=== PATIENT | male | born 1970 | race Caucasian/White ===

== ENCOUNTER 2017-10-11 08:45 | Inpatient (IN) ==
[2017-10-18] MEDS ORDERED: Metoprolol Tartrate 25 MG Tablet PO SCH (06:45)
[2017-10-18] MEDS ORDERED: Chlorhexidine Gluconate 2% 1 Pack (2 Cloths) TOPICAL SCH ×2 (06:45→07:00)
[2017-10-18] MEDS ORDERED: Sodium Chlor 0.9% Inj 500 ML IV.SIG SCH (07:00)
[2017-10-18] MEDS ORDERED: Vancomycin Inj 1,000 MG in Sodium Chlor 0.9% Inj 250 ML IV.SIG SCH (07:00)
[2017-10-18] MEDS ORDERED: Artificial Tears Opth Oint 3.5 GM Tube ONE (07:19)
[2017-10-18] MEDS: Sod Chloride 0.9% Inj 1,000 ML IV.SIG SCH (07:31)
[2017-10-18] MEDS ORDERED: Bupivacaine/Epinephrine 0.5% Inj 50 ML Vial ONE (08:41)
[2017-10-18] MEDS ORDERED: Gelatin Size 100 Topical Foam ONE (08:41)
[2017-10-18] MEDS ORDERED: Thrombin Topical Soln 5,000 UNIT Vial TOPICAL ONE (08:41)
[2017-10-18] MEDS ORDERED: Phenylephrine/NS 1000 MCG/10ML Syringe IV.PUSH ONE (12:00)
[2017-10-18] MEDS ORDERED: Glycopyrrolate Inj 1 MG/5 ML Syringe IV.PUSH ONE (12:00)
[2017-10-18] MEDS ORDERED: Lidocaine PF 1% Inj 5 ML Syringe INFILTRATN ONE (12:00)
[2017-10-18] MEDS ORDERED: Neostigmine Inj 5 MG/5 ML Syringe IV.PUSH ONE (12:00)
[2017-10-18] MEDS ORDERED: Menthol 5.8 MG Lozenge BUCCAL PRN (12:30)
[2017-10-18] MEDS ORDERED: Aluminum/Magnesium/Simethacone Susp 30 ML UDC PO PRN (12:30)
[2017-10-18] MEDS ORDERED: Acetaminophen 325 MG Tablet PO PRN (12:30)
[2017-10-18] MEDS ORDERED: Magnesium Sulfate Inj 2 GM in Sodium Chlor 0.9% Inj 96 ML IV.SIG PRN (12:30)
[2017-10-18] MEDS ORDERED: Potassium Chlor 20 mEq Premix 20 MEQ/100 ML PIGGYBACK IV.SIG PRN (12:30)
[2017-10-18] MEDS ORDERED: Morphine Inj 4 MG/ML Vial IV.PUSH PRN (12:30)
[2017-10-18] MEDS ORDERED: Bisacodyl 10 MG Supp RECTAL PRN (12:30)
[2017-10-18] MEDS ORDERED: Calcium Gluconate Inj 1 GM in Sodium Chlor 0.9% Inj 100 ML IV.SIG PRN (12:30)
[2017-10-18] MEDS ORDERED: Zolpidem Tartrate 5 MG Tablet PO PRN (12:30)
--- NOTE | 2017-10-18 12:46 | P.OP ---
- Preoperative Diagnosis (1) Degeneration of lumbar intervertebral disc (2) Spinal stenosis of lumbar region with radiculopathy (3) Lumbar facet arthropathy (4) Chronic low back pain with bilateral sciatica (5) History of lumbar fusion - Postoperative Diagnosis (1) Chronic low back pain with bilateral sciatica (2) Degeneration of lumbar intervertebral disc (3) History of lumbar fusion (4) Lumbar facet arthropathy (5) Spinal stenosis of lumbar region with radiculopathy Date of procedure: 10/18/17 Procedure: Lumbar L4-5 transforaminal interbody fusion; L4-5 decompressive laminectomy with facetectomy and foraminotomy; L4-5 pedicle screw fixation; L4-5 interbody cage placement; removal of L5-S1 rods and caps with replacement; microsurgical technique Anesthesia: MERYL Surgeon: Nghia Maher MD Block Press Operator: Radha Kim Estimated blood loss (mL): 100 Operation and Findings: Following initiation of general endotracheal anesthesia, the patient had a Smith catheter placed along with sequential compression devices. A gram of vancomycin was administered intravenously and he was turned in a prone position on a Maxwell frame, on a Evin table, and all pressure points adequately padded. The lumbosacral region was then prepped with Chloraprep and sterilely draped with Ioban along the usual sterile draping. A right paraspinal skin incision was then made extending from the L4-L5 level also incorporating the previous L5-S1 incision site after infiltrating the skin with 0.5% Marcaine with epinephrine solution extending down through the fascia. The muscle fibers were split using avascular fatty plane and detached from the underlying facets, transverse process and lateral portion of lamina on the right side and a self- retaining retractor used for exposure. Intraoperative fluoroscopy was also used for level of confirmation along with microscope magnification for further dissection. There was significant facet and ligamentum flavum hypertrophy noted at the L4-5 levels. Right L4-5 facet was resected with a drill bit along with the lamina and there was severe foraminal and lateral recess stenosis from hypertrophied ligamentum flavum and facet which were decompressed. There was significant disc height collapse along with disc protrusion also leading to the foraminal stenosis. Epidural hemostasis was achieved with bipolar cautery and Gelfoam with thrombin. Subsequently entered into the disc space at the L4- 5 level with a #15 blade and hiram were used for discectomy. I then placed PEEK cage packed with local autograft bone and more local autograft bone was packed adjacent to the cage in interspace for added interbody fusion. With placement of the cage, I was able to distract the interspace and opened up the foramen further bilaterally. Subsequently in order to facilitate the fusion and provide stabilization, pedicle screw fixation was undertaken using [place] spine screws on entry point at the right L4 level at the junction of the transverse process and facet using lateral and AP fluoroscopy guidance. The right L5 and S1 pedicle screws were also exposed with the lysis of adjacent scar tissue and the capsule and the jamie was removed. The L4, L5 and S1 screws were then connected with a jamie and locked in place with caps. The construct appeared very secure at this point. The area was then copiously irrigated with Vancomycin solution and powder. The retractors were removed and the bipolar cautery used for hemostasis. The muscle fascia was then approximated using 2-0 Vicryl interrupted stitches and then 3-0 Vicryl subcuticular stitches also placed in interrupted fashion. The final skin closure was completed with Mastisol and Steri-Strips. A sterile dressing was then applied. The patient then turned in supine position, extubated and taken to recovery room. There were no intraoperative complications. All sponge and needle counts were correct at the end of procedure. Estimated blood loss about 100 ml.
[2017-10-18] MEDS ORDERED: fentaNYL Citrate Inj 100 MCG/2 ML Ampul ONE (12:54)
[2017-10-18] MEDS ORDERED: *morphine SULFATE 4 MG/ML PERIprocedure ONLY ONE ×2 (12:57→14:03)
[2017-10-18] MEDS: Gabapentin 300 MG Capsule PO SCH ×2 (13:00→18:00)
--- NOTE | 2017-10-18 13:28 | XR ---
EXAM DATE: 10/18/2017 1:02 PM EDT AGE/SEX: 47 years / Male INDICATIONS: Herniated disk, hardware placement, fusion. CLINICAL DATA: This is the patient's initial encounter. Patient reports that signs and symptoms have been present for 1 day and indicates a pain score of Nonresponsive. MEDICAL/SURGICAL HISTORY: . . L5-S1 fusion. COMPARISON: [facility] [place], SP[facility] LUMBAR [facility] (AP & LAT), 12/21/2012. . FINDINGS: AP and lateral spot fluoroscopic images obtained in the operating room during a procedure demonstrate s right pedicular screws with vertical stabilization hardware at L4-S1. Material is also present in t he intervening disc spaces. CONCLUSION: Images obtained during right posterior lumbosacral fusion, as above. Electronically signed by: Juventino Malhotra MD 10/18/2017 1:27 PM EDT
[2017-10-18 13:31] LABS: Baso % (Auto) 0.2 % (0.0-2.0); Eos % (Auto) 0.1 % (0.0-4.0); Hematocrit 39.8 % (39.0-51.0); Hemoglobin 13.3 gm/dL (13.0-17.0); Lymph # (Auto) 0.4 th/mm3 (1.0-4.8); Lymph % (Auto) 5.5 % (9.0-44.0); Mean Corpuscular HGB Conc 33.3 % (32.0-36.0); Mean Corpuscular Hemoglobin 29.4 pg (27.0-34.0); Mean Corpuscular Volume 88.3 fL (80.0-100.0); Mean Platelet Volume 7.1 fL (7.0-11.0); Mono % (Auto) 0.5 % (0.0-8.0); Neut # (Auto) 7.2 th/mm3 (1.8-7.7); Neut % (Auto) 93.7 % (16.0-70.0); Platelet Count 198 th/mm3 (150-450); Red Blood Count 4.51 mil/mm3 (4.50-5.90); Red Cell Distribution Width 14.1 % (11.6-17.2); White Blood Count 7.7 th/mm3 (4.0-11.0)
[2017-10-18 13:53] LABS: Calcium 8.2 mg/dL (8.5-10.1); Carbon Dioxide 29.2 meq/L (21.0-32.0); Potassium 4.3 meq/L (3.5-5.1)
[2017-10-18] MEDS: Senna/Docusate Sodium 8.6/50 MG Tablet PO SCH (21:03)
[2017-10-19] MEDS: Sod Chloride 0.9% Inj 1,000 ML IV.SIG SCH (08:18)
[2017-10-19] MEDS: Senna/Docusate Sodium 8.6/50 MG Tablet PO SCH ×2 (09:28→21:43)
[2017-10-19] MEDS: Gabapentin 300 MG Capsule PO SCH ×3 (09:28→18:41)
[2017-10-20] MEDS: Sod Chloride 0.9% Inj 1,000 ML IV.SIG SCH (08:29)
[2017-10-20] MEDS: Gabapentin 300 MG Capsule PO SCH ×3 (09:24→18:25)
--- NOTE | 2017-10-20 10:19 | P.PNNS ---
Subjective Interval history: Pt awake and alert. Complains of incisional pain. No radiculopathy in LEs. Paresthesias posterior right knee. Pt states he is ambulating. He has had BMs. <Parish Zuniga - Last Filed: 10/20/17 10:13> Physical Exam Vital signs: Vital Signs 10/19/17 10:27 10/19/17 12:00 10/19/17 16:00 Temperature 97.6 F 97.8 F Pulse Rate 96 H 100 H Respiratory Rate 14 18 18 Blood Pressure 122/70 120/60 Pulse Oximetry 93 L 94 L 10/19/17 20:00 10/20/17 00:00 10/20/17 04:22 Temperature 98.1 F 97.9 F Pulse Rate 101 H 94 H Respiratory Rate 16 17 16 Blood Pressure 144/80 H 123/67 Pulse Oximetry 93 L 94 L 10/20/17 08:00 Temperature 98.2 F Pulse Rate 88 Respiratory Rate 17 Blood Pressure 109/56 L Pulse Oximetry 94 L Intake & Output 10/19/17 10/20/17 10/20/17 18:59 06:59 18:59 Intake Total 1180 / 1180 480 / 480 Balance 1180 / 1180 480 / 480 Intake: IV 100 / 100 Ancef Inj 1,000 MG In NS Inj 100 / 100 100 ML @ 200 mls/hr IV.SIG Q8H NELLIE Rx#:[id number] Oral 1080 / 1080 480 / 480 Other: # Voids 3 Date of Last Bowel Movement 10/19/17 # Bowel Movements 1 - Constitutional no acute distress, cooperative - Routine HEENT Exam Head: Present: normocephalic, atraumatic Eye: Present: PERRL. Absent: conjunctival icterus ENT: Present: oropharynx clear - Routine Neck Exam Present: trachea midline - Routine Respiratory Exam Present: CTA bilaterally. Absent: respiratory distress, rhonchi, wheezes - Routine Cardiovascular Exam Present: RRR, S1, S2. Absent: murmur - Routine Abdominal Exam Present: soft, normoactive bowel sounds. Absent: distended - Routine Extremities Exam Absent: cyanosis - Routine Skin Exam Present: intact. Absent: cyanosis, erythema Comments: Lumbar incision is clean and dry without signs of infection. New bandage place. - Routine Neurological Exam Present: alert, oriented X3. Absent: sensory deficit, motor deficit - Routine Psychiatric Exam Present: normal affect, cooperative. Absent: agitated - Urinary Catheter Management Indwelling Urethral Catheter Cath placed during this visit: yes, but has since been removed by the nurse Reason for continuing: Decision to DC catheter Insertion date: 10/18/17 Insertion time: 08:30 Removal date: 10/19/17 Removal time: 08:00 <Parish Zuniga - Last Filed: 10/20/17 10:13> Vital signs: Vital Signs 10/19/17 20:00 10/20/17 00:00 10/20/17 04:22 Temperature 98.1 F 97.9 F Pulse Rate 101 H 94 H Respiratory Rate 16 17 16 Blood Pressure 144/80 H 123/67 Pulse Oximetry 93 L 94 L 10/20/17 08:00 10/20/17 12:00 Temperature 98.2 F 98.5 F Pulse Rate 88 102 H Respiratory Rate 17 17 Blood Pressure 109/56 L 152/72 H Pulse Oximetry 94 L 94 L Intake & Output 10/19/17 10/20/17 10/20/17 18:59 06:59 18:59 Intake Total 1180 / 1180 480 / 480 Balance 1180 / 1180 480 / 480 Intake: IV 100 / 100 Ancef Inj 1,000 MG In NS Inj 100 / 100 100 ML @ 200 mls/hr IV.SIG Q8H NELLIE Rx#:[id number] Oral 1080 / 1080 480 / 480 Other: # Voids 3 Date of Last Bowel Movement 10/19/17 10/20/17 # Bowel Movements 1 - Urinary Catheter Management Indwelling Urethral Catheter Cath placed during this visit: no <Nghia Maher - Last Filed: 10/20/17 16:01> Assessment and Plan - Assessment (1) Degeneration of lumbar intervertebral disc Code(s): M51.36 - Other intervertebral disc degeneration, lumbar region Status : Acute (2) Spinal stenosis of lumbar region with radiculopathy Code(s): M48.061 - Spinal stenosis, lumbar region without neurogenic claudication; M54.16 - Radiculopathy, lumbar region Status: Acute (3) Lumbar facet arthropathy Code(s): M46.96 - Unspecified inflammatory spondylopathy, lumbar region Status : Acute (4) Chronic low back pain with bilateral sciatica Code(s): M54.41 - Lumbago with sciatica, right side; M54.42 - Lumbago with sciatica, left side; G89.29 - Other chronic pain Status: Acute (5) History of lumbar fusion Code(s): Z98.1 - Arthrodesis status Status: Acute - Plan A: 47 y/o M s/p Lumbar L4-5 transforaminal interbody fusion; L4-5 decompressive laminectomy with facetectomy and foraminotomy; L4-5 pedicle screw fixation; L4-5 interbody cage placement; removal of L5-S1 rods and caps with replacement on 10/18/17. P: Continue with pain control. Continue with rehab efforts. Anticipate discharge 10/21/17. <Parish Zuniga - Last Filed: 10/20/17 10:13> - Attending Attestation The exam, history, and the medical decision-making described in the above note were completed with the assistance of the mid-level provider. I reviewed and agree with the findings presented. I attest that I had a [id number] encounter with the patient on the same day, and personally performed and documented my assessment and findings in the medical record. <Nghia Maher - Last Filed: 10/20/17 16:01>
[2017-10-20] MEDS: Senna/Docusate Sodium 8.6/50 MG Tablet PO SCH ×2 (13:25→23:42)
[2017-10-21] MEDS: Sod Chloride 0.9% Inj 1,000 ML IV.SIG SCH (08:46)
[2017-10-21] MEDS: Gabapentin 300 MG Capsule PO SCH ×2 (08:47→13:20)
[2017-10-21] MEDS: Senna/Docusate Sodium 8.6/50 MG Tablet PO SCH (08:47)
--- NOTE | 2017-10-21 10:06 | P.PNNS ---
Subjective Interval history: Pt awake and alert. Complains of incisional discomfort controlled with pain medication. No radiculopathy in LEs. Paresthesias posterior knee resolved. Physical Exam Vital signs: Vital Signs 10/20/17 12:00 10/20/17 16:00 10/20/17 20:00 Temperature 98.5 F 98.3 F 98.1 F Pulse Rate 102 H 103 H 99 H Respiratory Rate 17 18 17 Blood Pressure 152/72 H 126/59 L 116/70 Pulse Oximetry 94 L 98 95 10/21/17 00:00 10/21/17 01:30 10/21/17 04:00 Temperature 97.8 F 98.6 F Pulse Rate 101 H 88 Respiratory Rate 17 17 17 Blood Pressure 133/64 126/66 Pulse Oximetry 95 96 Intake & Output 10/20/17 10/21/17 10/21/17 18:59 06:59 18:59 Intake Total 960 / 960 Balance 960 / 960 Intake: Oral 960 / 960 Other: # Voids 4 Date of Last Bowel Movement 10/20/17 10/20/17 - Constitutional no acute distress, average body habitus - Routine HEENT Exam Head: Present: normocephalic, atraumatic Eye: Present: PERRL. Absent: scleral injection ENT: Present: oropharynx clear - Routine Neck Exam Present: trachea midline - Routine Respiratory Exam Present: CTA bilaterally. Absent: respiratory distress, rhonchi, wheezes - Routine Cardiovascular Exam Present: RRR, S1, S2. Absent: murmur - Routine Abdominal Exam Present: soft, normoactive bowel sounds. Absent: distended, firm - Routine Extremities Exam Absent: cyanosis - Routine Skin Exam Absent: cyanosis, erythema Comments: Incision clean and dry without signs of infection. New bandage placed. - Routine Neurological Exam Present: alert, oriented X3, moving all extremities (5/5 strength LEs.). Absent : sensory deficit, motor deficit - Routine Psychiatric Exam Present: normal affect, cooperative. Absent: agitated - Urinary Catheter Management Indwelling Urethral Catheter Cath placed during this visit: yes, but has since been removed by the nurse Reason for continuing: Decision to DC catheter Insertion date: 10/18/17 Insertion time: 08:30 Removal date: 10/19/17 Removal time: 08:00 Assessment and Plan - Assessment (1) Degeneration of lumbar intervertebral disc Code(s): M51.36 - Other intervertebral disc degeneration, lumbar region Status : Acute (2) Spinal stenosis of lumbar region with radiculopathy Code(s): M48.061 - Spinal stenosis, lumbar region without neurogenic claudication; M54.16 - Radiculopathy, lumbar region Status: Acute (3) Lumbar facet arthropathy Code(s): M46.96 - Unspecified inflammatory spondylopathy, lumbar region Status : Acute (4) Chronic low back pain with bilateral sciatica Code(s): M54.41 - Lumbago with sciatica, right side; M54.42 - Lumbago with sciatica, left side; G89.29 - Other chronic pain Status: Acute (5) History of lumbar fusion Code(s): Z98.1 - Arthrodesis status Status: Acute - Plan A: 47 y/o M s/p Lumbar L4-5 transforaminal interbody fusion; L4-5 decompressive laminectomy with facetectomy and foraminotomy; L4-5 pedicle screw fixation; L4-5 interbody cage placement; removal of L5-S1 rods and caps with replacement on 10/18/17. Pain controlled with oral pain medication Pt voiding and moving bowels. P: D/C home Discussed restrictions Discussed incision care Discussed follow up.
--- NOTE | 2017-11-08 13:27 | P.DS ---
Date of admission: 10/18/17 06:13 Primary care physician: Juventino Golden Attending physician on discharge: Nghia Maher Brief History from admission: This is a 47 y/o M who presented for an evaluation of low back pain and right leg symptoms. he has previously undergone a L5/S1 interbody fusion with cage and pedicle screw fixation on 12/21/12. He states he did well after his last surgery until about 2015 and he has progressively had right leg pain and foot numbness intermittently initially. He was referred to pain management and in December 2015 was having numbness with pain in the leg on the right side and saw Dr. Rivera. He has a spinal stimulator placed in March 2016 and states that the pain was not better or different. The pain progressively got worse despite adjustments in the intensity of the stimulator. He had been on tramadol for long period of time and was admitted on gabapentin and the dose was titrated up to 600mg four times a day. He states he tried yoga and stretches and also acupuncture which helped some and he was able to wean off the gabapentin down to 600mg tid and he feels like he could go down to 600mg twice a day but he is concerned about weaning it too quickly and having the symptoms return. He was switched to hydrocodone 3 months ago which also does not control his pain. He states getting up out of a chair from a sitting position is very difficult and he has a kyphotic posture. He states he is now starting to get pain into the left leg in a similar distribution as the right. He states he has numbness in both of his feet in the heel area. The right foot he has numbness in the right fifth toe and now is starting to get numbness in the first and second toes also. He also occasionally lightening bolts type of pain radiating into the right lateral leg. He states that he has had extensive pain management and at this point he was referred back to neurosurgery to see if there is any further neurosurgical intervention needed. DS: Diagnosis - Discharge Diagnosis (1) Degeneration of lumbar intervertebral disc Status: Acute (2) Spinal stenosis of lumbar region with radiculopathy Status: Acute (3) Lumbar facet arthropathy Status: Acute (4) Chronic low back pain with bilateral sciatica Status: Acute (5) History of lumbar fusion Status: Acute DS: Medications - Discharge Medications Prescriptions: cyclobenzaprine 10 mg PO TID PRN #60 tab PRN Reason: Muscle Spasm gabapentin 600 mg PO TID #90 cap hydrocodone-acetaminophen [[place]] 1 tab PO Q4H PRN #60 tab PRN Reason: Pain DS: Summary Hospital Course: Pt underwent a Lumbar L4-5 transforaminal interbody fusion; L4-5 decompressive laminectomy with facetectomy and foraminotomy; L4-5 pedicle screw fixation; L4- 5 interbody cage placement; removal of L5-S1 rods and caps with replacement; microsurgical technique on 10/18. He was admitted to the hospital after his surgery and had pain control. His Smith was removed and he was voiding well. PT was consulted and his activity status was increased. His diet was advanced. He was discharged home in stable condition. - Time Spent with Patient Total time spent providing and/or coordinating discharge services: Less than 30 minutes - Quality: VTE Deep Vein Thrombosis/Pulmonary Embolism Present on Admission: No Results Procedures completed during hospitalization: Lumbar L4-5 transforaminal interbody fusion; L4-5 decompressive laminectomy with facetectomy and foraminotomy; L4-5 pedicle screw fixation; L4-5 interbody cage placement; removal of L5-S1 rods and caps with replacement; microsurgical technique by Nghia Maher MD on 10/18/17. - Impressions ITS Impressions Lumbar Spine X-Ray 10/18/17 00:00 CONCLUSION: Images obtained during right posterior lumbosacral fusion, as above. Discharge Plan - Discharge Disposition Patient Disposition: 01 Discharge Home - Discharge Condition Condition: Stable - Discharge Order Discharge Orders: Discharge Order (Routine); Ordered 10/21/17 Ordered By: Parish Zuniga - Physicians Team Primary Care Provider: Juventino Golden Attending Provider: Nghia Maher - Rxs /Orders / Referrals /Forms Prescriptions: New cyclobenzaprine 10 mg Tablet 10 mg PO TID PRN (Reason: Muscle Spasm) Qty: 60 RF: 2 hydrocodone-acetaminophen [[place]] 10-325 mg Tablet 1 tab PO Q4H PRN (Reason: Pain) Qty: 60 RF: 0 Continue cholecalciferol (vitamin D3) [Vitamin D3] 1,000 unit Capsule 1,000 units PO DAILY duloxetine [Cymbalta] 30 mg Capsule,Delayed Release(Dr/Ec) 30 mg PO BID gabapentin 600 mg Tablet 600 mg PO TID Qty: 90 Discontinued cyclobenzaprine tablet 10 mg PO BID hydrocodone-acetaminophen [[place]] 5-325 mg Tablet 1 tab PO Q6H PRN (Reason: Pain) meloxicam 7.5 mg Tablet 7.5 mg PO DAILY Ambulatory Orders / Order Sets / DME: Walker With Front Wheels (1 each) (Routine) Location: Determined by Patient Ordered By: Parish Zuniga Referrals: Juventino Golden MD [Primary Care Provider] - See Instructions - Discharge Instructions Patient Printed Instructions: Hydrocodone/Acetaminophen (By mouth), Laminectomy (DC) Additional Instructions: Rx given for [place] 10-325mg upon patient discharge. Take medication as prescribed.
== END 2017-10-21 13:25 | disposition home or self-care (01) ==
LOC: HSDI 10-18 06:13 → N06 10-18 14:42
PROVIDERS: ADMIT Neurological Surgery; ATTEND Neurological Surgery